=== PATIENT | male | born 1960 | race Caucasian/White ===

== ENCOUNTER 2021-09-12 15:36 | Emergency (ER) | payer OTHER ==
[2021-09-12 16:39] LABS: RED BLOOD COUNT 4.91 M/UL (4.20-5.50); WHITE BLOOD COUNT 4.5 K/UL (4.5-11.0)
[2021-09-12 17:04] LABS: BUN/CREATININE RATIO 9 (0-10)
[2021-09-12] MEDS ORDERED: DOXYCYCLINE HY100 M2 PO (21:52)
[2021-09-12] MEDS ORDERED: DECADRON6 MG PO (21:52)
== END 2021-09-12 22:02 | disposition home or self-care (01) ==
LOC: ER1 15:36
PROVIDERS: Physician Assistant
DX: U07.1 COVID-19 (principal); J44.0 Chronic obstructive pulmonary disease with (acute) lower respiratory infection; J12.82 Pneumonia due to coronavirus disease 2019; E87.6 Hypokalemia; R79.1 Abnormal coagulation profile; Z88.8 Allergy status to other drugs, medicaments and biological substances; I51.9 Heart disease, unspecified; I25.10 Atherosclerotic heart disease of native coronary artery without angina pectoris; I25.2 Old myocardial infarction; E78.5 Hyperlipidemia, unspecified
CPT/HCPCS: 0241U; 71045; 80053; 82550; 82553; 83874; 83880; 84484; 85025; 85379; 85610; 85730; 93005; 99285; Q9967

== ENCOUNTER → 2021-09-14 | Outpatient (CLI) | payer OTHER ==
[~2021-09-14] VITALS: Ht 172.7 cm; Wt 117.9 kg
[~2021-09-14] MED LIST: DECADRON6 MG PO; DOXYCYCLINE HY100 M2 PO
== END ==
LOC: EROP 12:49
DX: U07.1 COVID-19 (principal); Z23 Encounter for immunization
CPT/HCPCS: M0247; Q0247